=== PATIENT | male | born 1965 | race Caucasian/White ===

== ENCOUNTER 2018-02-13 08:19 | Emergency (ER) | payer OTHER ==
[2018-02-13 08:27] VITALS: BP 148/107
--- NOTE | 2018-02-13 09:05 | EDPHY ---
H & P Stated Complaint: left lower jaw infection for a couple weeks that is getting worse Time Seen by Provider: 02/13/18 08:43 HPI/ROS: Chief Complaint: Jaw pain HPI: 52-year-old male's diagnosed with a left dental abscess 2 weeks ago. He completed a course of clindamycin but has had worsening pain. He is seen by an energy management specialist last week. He had a CT scan which showed a dental abscess. He was started again on clindamycin. He has an appointment with an oral surgeon tomorrow morning. He is having worsening pain and swelling. Does not have any difficulty swallowing or any difficulty breathing. He has been taking oral analgesia with good relief. No fevers or chills. He is having some pain which is radiating to his jaw. He is presenting with concerns that his symptoms are worsening. ROS: 10 systems were reviewed and were negative except those elements noted in the HPI. Social History: No smoking, no alcohol, no recreational drug use Family History: non-contributory Physical Exam: General: Awake, alert, no acute distress HEENT: Normocephalic, patient has mild sweaty all swelling over his left mandible. There is no submandibular swelling or tenderness. There is no fullness in his submandibular region or in his anterior neck. He has no trismus. There is a small area of erythema adjacent to his left molar. There is no pointing. There is no other edema. He does have some dental tenderness to percussion on the left hand side. Neck: No swelling. No lymphadenopathy. Skin: No rash - Personal History Current Tetanus/Diphtheria Vaccine: Yes Current Tetanus Diphtheria and Acellular Pertussis (TDAP): Yes Tetanus Vaccine Date: < 10 years - Medical/Surgical History Hx Asthma: No Hx Chronic Respiratory Disease: No Hx Diabetes: No Hx Cardiac Disease: No Hx Renal Disease: No Hx Cirrhosis: No Hx Alcoholism: No Hx HIV/AIDS: No Hx Splenectomy or Spleen Trauma: No Other PMH: none reported - Social History Smoking Status: Never smoked Constitutional: Initial Vital Signs Temperature (C) 36.9 C 02/13/18 08:25 Heart Rate 76 02/13/18 08:25 Respiratory Rate 18 02/13/18 08:25 Blood Pressure 148/107 H 02/13/18 08:25 O2 Sat (%) 96 02/13/18 08:25 O2 Delivery Mode Room Air Allergies/Adverse Reactions: Penicillins Allergy (Severe, Verified 02/13/18 08:23) THROAT SWELLING Home Medications: Medication Instructions Recorded Amitriptyline HCl 02/13/18 Clindamycin 02/13/18 Hydrocodone/Acetaminophen 1 - 2 each PO Q4-6PRN PRN #10 02/13/18 [Hydrocodon-Acetaminophen 5-325] tablet Propranolol HCl 02/13/18 Vicodin 5-300 mg Tablet 02/13/18 Medical Decision Making ED Course/Re-evaluation: Patient presenting with left jaw pain and swelling with a known dental abscess. I do not see any clinical findings suggestive of a submandibular abscess or Reggie's angina. There is no trismus. There is absolutely no submandibular tenderness or swelling. We have discussed the benefits of possible reimaging on CT. Patient states he had a CT just few days ago for prefer to not have this. He is wondering what other antibiotics. He is allergic to penicillin is already on oral clindamycin. I have explained that I do not believe that additional IV antibiotics will be of any benefit. He has an appointment with an oral surgeon tomorrow. Plan will be for him to follow up with his surgeon as scheduled. He will return for any worsening symptoms including any swelling in the submandibular region or in his neck, difficulty breathing, difficulty swallowing, or any other concerns. Departure - Departure Disposition: Home, Routine, Self-Care Clinical Impression: Dental abscess Condition: Good Instructions: Dental Abscess (ED) Additional Instructions: Continue taking your oral antibiotics. Follow up with the oral surgeon tomorrow as scheduled. Return to the emergency department for increasing pain or swelling under your jaw or in your throat or neck, difficulty swallowing, difficulty breathing, increasing pain, or any other concerns. Referrals: Rosendo Tucker MD [Primary Care Provider] - As per Instructions Prescriptions: Hydrocodone/Acetaminophen [Hydrocodon-Acetaminophen 5-325] 1 - 2 each PO Q4- 6PRN PRN #10 tablet PRN Reason: Pain, Severe
== END 2018-02-13 09:16 | disposition home or self-care (01) ==
DX: K04.7 Periapical abscess without sinus (principal)